=== PATIENT | male | born 1975 | race Caucasian/White ===

== ENCOUNTER → 2022-02-03 | Outpatient (REF) | payer SELFPAY ==
[2022-02-03 15:27] LABS: Absolute Lymphocyte Count 1.17 X10^3/uL (0.83-4.51); Absolute Neutrophil Count 3.3 X10^3/uL (2.0-7.7); Basophil# 0.03 X10^3/uL; Basophil% 0.6 % (0-1); Eosinophil# 0.09 X10^3/uL; Eosinophils% 1.8 % (0-5); Hematocrit 44.7 % (40-54); Hemoglobin 15.5 g/dL (13.0-16.5); Lymphocyte # 1.17 X10^3/ul (0.83-4.51); Lymphocyte % 23.4 % (19-41); Mean Corp Hgb Conc 34.7 g/dL (32-36); Mean Corpuscular Hgb 31.3 pg (27.0-32.0); Mean Corpuscular Volume 90.1 fL (80-94); Mean Platelet Vol. 9.7 fl (6.2-12.0); Monocyte# 0.36 X10^3/uL; Monocyte% 7.2 % (0-10); NRBC Flagged by Analyzer 0 % (0-5); Neutrophil # 3.34 X10^3/uL (2.7-7.7); Neutrophil % 66.8 % (47-70); Platelet Count 250 K/mm3 (150-450); RBC Distribution Width CV 11.9 % (11.6-14.6); RBC Distribution Width SD 39.3 fl (35.1-43.9); Red Blood Count 4.96 M/mm3 (4.6-6.2)
[2022-02-03 15:43] LABS: Erythrocyte Sedimentation Rate 11 mm/hr (0-20)
[2022-02-03 16:29] LABS: Hemoglobin A1c 5.3 % (3.8-5.6)
[2022-02-03 16:31] LABS: ALB/GLOB Ratio 1.2 RATIO (0.9-2.4); AST(SGOT) 13 U/L (15-37); Alanine Aminotransfer ALT/SGPT 23 U/L (16-61); Albumin, Serum 4.1 g/dL (3.2-5.0); Alkaline Phosphatase 58 U/L (45-117); Anion Gap 5 (5-15); BUN 19 mg/dL (7-18); BUN/Creat Ratio 16.8 RATIO (10-20); CRP < 2.90 mg/L (0.0-3.0); Calcium,Total 9.2 mg/dL (8.5-10.1); Chloride 106 mmol/L (98-107); Cholesterol 217 mg/dL (200); Creatinine, Serum 1.13 mg/dL (0.70-1.30); EST Glomerular Filtration Rate 74 mL/min (>60); Est Glom Filt Rate - Afr Amer 90 mL/min (>60); Ferritin 88 ng/mL (26-388); Free T3 2.6 pg/mL (2.18-3.98); Globulin 3.3 g/dL (2.2-4.2); Glucose 95 mg/dL (74-106); High Density Lipoprotein 65 mg/dL; Iron 99 ug/dL (65-175); PSA,Total - Annual Screen 4.19 ng/mL (0.00-4.00); Potassium 4.4 mmol/L (3.5-5.1); Protein, Total 7.4 g/dL (6.4-8.2); Sodium Level 142 mmol/L (136-145); Triglycerides 106 mg/dL; Very Low Density Lipoprotein 21 mg/dL (5-40)
[2022-02-04 07:04] LABS: Homocysteine 11.1 umol/L (3.2-10.7)
[2022-02-05 08:40] LABS: Vitamin B12 571 pg/mL (211-911); Vitamin D,25 Hydroxy 36.6 ng/mL
[2022-02-08 15:44] LABS: Thyroglobulin Antibody < 1.0 IU/mL (0.0-0.9); Thyroid Peroxidase AB < 8 IU/mL (0-34)
== END | disposition home or self-care (01) ==
LOC: LABSPEC 14:53
PROVIDERS: Visit Provider Nurse Practitioner Family
DX: R59.9 Enlarged lymph nodes, unspecified (principal)
CPT/HCPCS: 80053; 80061; 82306; 82607; 82627; 82728; 83036; 83090; 83540; 84153; 84403; 84439; 84443; 84481; 85025; 85652; 86140; 86376; 86800; 82626; G0103

== ENCOUNTER → 2022-02-13 | Outpatient (CLI) | payer SELFPAY ==
--- NOTE | 2022-02-13 18:21 | US_ITS ---
EXAM: US ABDOMEN LIMITED CLINICAL INDICATION: LUMP -LT CHEST TECHNIQUE: Real-time ultrasound of the soft tissues of the abdomen with image documentation. This report was created using Tk20 report generation technology. COMPARISON: No FINDINGS: See Impression US/Ext Non Vasc Limited/Soft Tiss IMPRESSION: Hyperechoic elongated mass measuring 2.8 x 4.5 x 0.8 cm compatible with lipoma. Electronically Signed: García Trujillo MD at 21:12 EST ,
== END | disposition home or self-care (01) ==
PROVIDERS: PCP Internal Medicine; Referring Provider Nurse Practitioner Family; Visit Provider Nurse Practitioner Family
DX: R22.2 Localized swelling, mass and lump, trunk (principal)
CPT/HCPCS: 76882

== ENCOUNTER 2022-05-06 10:19 | Emergency (ER) | payer SELFPAY ==
[2022-05-06 10:21] VITALS: BP 153/86; PULSE 72; RESP 14; TEMP 36.2; O2SAT 100; BMI 25.1
--- NOTE | 2022-05-06 10:26 | EDS_ITS ---
HPI History of Present Illness Chief Complaint: Other, Pain/Inj Informant: patient Onset/Context/Timing Onset: Month(s) (2) Context: Gradual Onset Timing: Waxes and wanes Quality: Aching Location: Left neck and upper chest Worsened by: Activity Relieved by: Sleeping Narrative Narrative: Patient presents with neck pain and swelling that has been getting progressively worse over the past 2 months. Patient states that today he felt like the swelling was going from his left side of his neck to his chest. Patient states it is over his upper chest. Patient states the pain is better when he first wakes up in the morning. Patient states it gets worse throughout the day as he is more active. Patient denies any fevers or chills. Patient denies any difficulty breathing or difficulty swallowing. Patient admits to an occasional cough but denies any sputum production. Patient denies any shortness of breath. Patient admits to some pain in his low back as well as his neck. Patient also states that he had some redness in his semen this morning. Patient thought it was blood. 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 Prior similar symptoms: No PFSH PFSH Medical History (Updated 05/06/22 @ 12:[address] Ruben Franklin, DO) Anxiety Depressed Headache Home Medications vitamin B complex 1 tab PO DAILY 01/03/21 [History Last Taken Unknown] ALLICIN 2 tab PO/SL DAILY 05/06/22 [History Last Taken Unknown] Endozin 1 tab PO/SL DAILY 05/06/22 [History Last Taken Unknown] Liquid D3 With Vitamin K2 5 drp PO/SL DAILY 05/06/22 [History Last Taken Unknown] P-5-PLUS 2 tab PO/SL DAILY 05/06/22 [History Last Taken Unknown] Seed Synbiotic 2 tab PO/SL DAILY 05/06/22 [History Last Taken Unknown] Ulticardio 24 2 tab PO/SL DAILY 05/06/22 [History Last Taken Unknown] atovaquone 750 mg/5 mL oral suspension 750 mg PO BID 05/06/22 [History Last Taken Unknown] azithromycin 500 mg tablet 500 mg PO DAILY 05/06/22 [History Last Taken Unknown] multivitamin 1 tab PO DAILY 05/06/22 [History Last Taken Unknown] tafenoquine 150 mg tablet (Krintafel) 150 mg PO FR 05/06/22 [History Last Taken 05/04/22] Allergy/AdvReac Type Severity Reaction Status Date / Time No Known Allergies Allergy Verified 05/06/22 10:21 Family History (Updated 01/03/21 @ 15:19 by Iona Ferris) Other Heart disease Hypertension Thyroid disorder Surgical History (Updated 05/06/22 @ 10:[address] Ruben Franklin DO) Hx of inguinal herniorrhaphy Social History Smoking Status: Never smoker alcohol intake: never substance use type: does not use ROS ROS ED Constitutional Constitutional ED: Denies chills or fever(s) Eyes Eyes: Denies blurry vision or change in vision ENT ENT ED: Denies rhinorrhea or sore throat Cardiovascular Cardiovascular: Denies chest pain or palpitations Respiratory/Chest Respiratory/Chest: Reports cough; Denies dyspnea Gastrointestinal Gastrointestinal: Denies nausea or vomiting Genitourinary Genitourinary ED: Denies dysuria or hematuria Musculoskeletal Musculoskeletal: Reports back pain and neck pain Integumentary Denies abscess or rash Neurologic Neurologic: Denies headache(s) or weakness Allergic/Immunologic Allergic/Immunologic ED: Denies mouth swelling or urticaria EXAM Physical Exam Const Vital Signs: 05/06/22 10:21 05/06/22 10:32 Temperature 97.1 F L Temperature Source Temporal Pulse Rate 72 Respiratory Rate 14 Respiratory Effort Normal Non-Labored Respiratory Pattern Normal Blood Pressure 153/86 H Blood Pressure Mean 108 Pulse Ox 100 Oxygen Delivery Method Room Air Positive well nourished and well developed General Appearance ED: well developed and NAD HEENT Reports moist mucous membranes Neck supple and no JVD Neck Narrative: There is mild tenderness over the left sternocleidomastoid area. There is mild edema but there is no ecchymosis. There is no bony crepitance or step-off. There is good range of motion. There is questionable lymphadenopathy in this ar ea. Resp normal respiratory effort and clear to auscultation bilaterally Cardio regular rate, regular rhythm and no murmurs GI normal to inspection, nondistended, normoactive bowel sounds and non-tender Palpation: soft Extremity normal to inspection General Extremety ED: Negative for edema or tenderness General Extremity: Negative for edema Neuro oriented x3, CN's II-XII intact bilaterally and no sensory deficits noted Sensorium / Orientation: alert Motor Exam: strength 5/5 throughout Psych mental status grossly normal Skin no rashes or lesions noted MDM MDM MDM Narrative Medical decision making narrative: Differential diagnosis include lymphoma, lymphadenopathy, soft tissue mass, abscess, branchial cleft cyst, coagulopathy, genitourinary infection, pharyngitis, viral illness, or other cancer. CBC will be obtained to assess for leukocytosis, anemia, and thrombocytopenia. PT was INR and PTT will be obtained to assess for coagulopathy. Comprehensive metabolic profile will be obtained to assess for electrolyte abnormality, renal function, and hepatic function. Urinalysis will be obtained to assess for urinary infection. Chest x-ray will be obtained to assess for pneumonia, mass, or other cardiopulmonary abnormality. CT scan of the soft tissue neck will be obtained to assess for mass, swelling, and lymphadenopathy. Lab Data Attestation: I reviewed the patient's lab results. Lab results narrative: CBC was reviewed and was within normal limits. PT was INR and PTT was reviewed and was within normal limits. Urinalysis was reviewed and was within normal limits. Comprehensive metabolic profile was reviewed and was within normal limits. Labs: Laboratory Results - last 24 hr 05/06/22 05/06/22 05/06/22 10:55 10:58 10:58 WBC 4.9 RBC 4.82 Hgb 14.9 Hct 43.9 MCV 91.1 MCH 30.9 MCHC 33.9 RDW Std Deviation 40.4 RDW Coeff of Magdaleno 12.0 Plt Count 248 MPV 8.9 Immature Gran % (Auto) 0.000 Neut % (Auto) 61.6 Lymph % (Auto) 24.9 [place] % (Auto) 10.5 H Eos % (Auto) 2.0 Baso % (Auto) 1.0 Absolute Neuts (auto) 3.0 Absolute Lymphs (auto) 1.23 Nucleated RBC % 0 PT 14.1 INR 1.1 APTT 29.0 Sodium Potassium Chloride Carbon Dioxide Anion Gap BUN Creatinine Estim Creat Clear Calc Est GFR (MDRD) Af Amer Est GFR (MDRD) Non-Af BUN/Creatinine Ratio Glucose Calcium Total Bilirubin AST ALT Alkaline Phosphatase Total Protein Albumin Globulin Albumin/Globulin Ratio Urine Color Yellow Urine Clarity Clear Urine pH 6.5 Ur Specific [place] 1.020 Urine Protein 15 H Urine Glucose (UA) Normal Urine Ketones Negative Urine Occult Blood 10 H Urine Nitrite Negative Urine Bilirubin Negative Urine Urobilinogen Normal Ur Leukocyte Esterase Negative Urine RBC 0 SEEN Urine WBC 0 SEEN Ur Squamous Epith Cells 0 SEEN Urine Bacteria 0 SEEN Urine Mucus 1+ 05/06/22 10:58 WBC RBC Hgb Hct MCV MCH MCHC RDW Std Deviation RDW Coeff of Magdaleno Plt Count MPV Immature Gran % (Auto) Neut % (Auto) Lymph % (Auto) [place] % (Auto) Eos % (Auto) Baso % (Auto) Absolute Neuts (auto) Absolute Lymphs (auto) Nucleated RBC % PT INR APTT Sodium 144 Potassium 4.2 Chloride 109 H Carbon Dioxide 29.0 Anion Gap 6 BUN 20 H Creatinine 1.25 Estim Creat Clear Calc 81.91 Est GFR (MDRD) Af Amer 80 Est GFR (MDRD) Non-Af 66 BUN/Creatinine Ratio 16.0 Glucose 104 Calcium 8.9 Total Bilirubin 0.90 AST 21 ALT 35 Alkaline Phosphatase 47 Total Protein 7.6 Albumin 4.3 Globulin 3.3 Albumin/Globulin Ratio 1.3 Urine Color Urine Clarity Urine pH Ur Specific [place] Urine Protein Urine Glucose (UA) Urine Ketones Urine Occult Blood Urine Nitrite Urine Bilirubin Urine Urobilinogen Ur Leukocyte Esterase Urine RBC Urine WBC Ur Squamous Epith Cells Urine Bacteria Urine Mucus Radiography Diagnostic Testing: Clinical Impression(s) from Imaging Studies Soft Tissue Neck CT 05/06/22 10:41 IMPRESSION: Normal enhanced CT examination of the soft tissues of the neck. Electronically Signed: Aroldo Interiano MD at 11:45 EST Reading Location ID and State: [address] [place] [address] , Service support , Chest X-Ray 05/06/22 10:42 IMPRESSION: Normal chest radiographs. Electronically Signed: Aroldo Interiano MD at 11:43 EST , PA and lateral chest x-ray was obtained. There are 2 views. On my independent interpretation, lung lake are clear. There is normal cardiac silhouette. Bony thorax is normal. There is no acute process noted. Radiologist also interpreted the x-ray and agrees. CT scan of the soft tissue neck was obtained. On my independent review, there is no acute abnormality. Radiologist also interpreted the CT scan and did not see any evidence of abscess, lymphadenopathy, mass, or soft tissue swelling. There is no acute process noted. Treatment and Re-Evaluation Narrative: Patient was advised of his findings. Patient is feeling better on reevaluation. Patient was instructed to follow-up with his primary care physician in 5 to 7 days for further evaluation. Patient understood and was agreeable with the plan. All questions were answered. Discharge Plan Triage Chief Complaint: Other, Pain/Inj ED Provider: Ruben Franklin Dx/Rx/DC Orders Clinical Impression: Neck pain Instructions: ED Neck Pain Prescriptions: No Action vitamin B complex Tablet 1 tab PO DAILY ALLICIN 2 tab PO/SL DAILY multivitamin [Grapefruit-500] Tablet 1 tab PO DAILY atovaquone 750 mg/5 mL suspension 750 mg PO BID Label Comments: Start with 1/2 teaspoon once daily and gradually work up to a full dose of 1 teaspoon twice daily azithromycin 500 mg tablet 500 mg PO DAILY Label Comments: TAKE 1 TABLET BY MOUTH EVERY DAY Krintafel 150 mg tablet 150 mg PO FR Label Comments: TAKE 1 OR 2 TABLETS BY MOUTH ONCE WEEKLY with food Endozin 1 tab PO/SL DAILY Liquid D3 With Vitamin K2 5 drp PO/SL DAILY P-5-PLUS 2 tab PO/SL DAILY Seed Synbiotic 2 tab PO/SL DAILY Ulticardio 24 2 tab PO/SL DAILY Primary Care Provider: Frances Chow BRIDGES SUPERVISOR Referrals: Hilaria Zurita MD [Med Staff - Securities Teller] - 5-7 Days Disposition Disposition: Home, Self Care
--- NOTE | 2022-05-06 10:41 | CT_ITS ---
STUDY: CT SOFT TISSUE NECK WITH CONTRAST REASON FOR EXAM: Male, 46 years old. Neck pain RADIATION DOSAGE (If Supplied By Facility): CTDIvol = ( 16.69 ) mGy, DLP = ( 581.25 ) mGycm TECHNIQUE: The patient was scanned in a multi-detector CT scanner. High resolution transaxial imaging was performed following intravenous administration of IV 75mL Isovue-370. Sagittal and coronal images were reconstructed. Individualized dose optimization techniques were used for this CT. COMPARISON: None. FINDINGS: Normal bilateral parotid glands. Normal bilateral filenet architect spaces. Normal bilateral parapharyngeal spaces. Normal bilateral carotid spaces. Normal bilateral sublingual and submandibular glands and spaces. Normal visualized nasopharynx. Normal retropharyngeal space. Normal perivertebral space. Normal visualized bilateral faucial tonsils. The visualized tongue, tongue base and oropharynx are normal. The visualized cervical lymph nodes (levels I-) are within normal size limits, and maintain normal morphology. There is no demonstrated solid or cystic mass lesion. There is no abnormal contrast enhancement. Normal epiglottis, bilateral vallecula and hypopharynx. The pre-epiglottic and paraglottic adipose spaces are normal. Normal visualized bilateral piriform sinuses, aryepiglottic folds, vocal cords, and arytenoid-cricoid articulations. Normal subglottic trachea. Normal bilateral lobes of the thyroid gland. Normal visualized pulmonary apices. Normal visualized paranasal sinuses. Normal visualized cervical spine. CT/Soft Tissue Neck WITH Contrast IMPRESSION: Normal enhanced CT examination of the soft tissues of the neck. Electronically Signed: Aroldo Interiano MD at 11:45 EST ,
--- NOTE | 2022-05-06 10:42 | RAD_ITS ---
EXAM: XR CHEST, 2 VIEWS CLINICAL INDICATION: Cough TECHNIQUE: Frontal and lateral views of the chest. This report was created using Sistemic report generation technology. COMPARISON: None. FINDINGS: LUNGS AND PLEURAL SPACES: The lungs are clear. No pneumothorax. No effusion. HEART: Unremarkable. Cardiac silhouette not enlarged. MEDIASTINUM: Central airways and mediastinal contour are unremarkable. BONES/JOINTS: Unremarkable. SOFT TISSUES: Unremarkable. RAD/Chest PA and Lateral IMPRESSION: Normal chest radiographs. Electronically Signed: Aroldo Interiano MD at 11:43 EST ,
[2022-05-06 11:05] LABS: Bacteria 0 SEEN /hpf (None Seen); Red Blood Cells-Urine 0 SEEN /hpf (0-5); Squamous Epithelial Cells - UA 0 SEEN /hpf (0-5); White Blood Cells 0 SEEN /hpf (0-5)
[2022-05-06] MEDS: 0.9% Normal Saline 1,000 ML 1000 ML IV (11:06)
[2022-05-06 11:08] LABS: Absolute Lymphocyte Count 1.23 X10^3/uL (0.83-4.51); Basophil# 0.05 X10^3/uL; Hematocrit 43.9 % (40-54); Hemoglobin 14.9 g/dL (13.0-16.5); Lymphocyte # 1.23 X10^3/ul (0.83-4.51); Lymphocyte % 24.9 % (19-41); Mean Corp Hgb Conc 33.9 g/dL (32-36); Mean Corpuscular Hgb 30.9 pg (27.0-32.0); Mean Corpuscular Volume 91.1 fL (80-94); Mean Platelet Vol. 8.9 fl (6.2-12.0); Monocyte# 0.52 X10^3/uL; Monocyte% 10.5 % (0-10); NRBC Flagged by Analyzer 0 % (0-5); Neutrophil # 3.03 X10^3/uL (2.7-7.7); Neutrophil % 61.6 % (47-70); Platelet Count 248 K/mm3 (150-450); RBC Distribution Width SD 40.4 fl (35.1-43.9); Red Blood Count 4.82 M/mm3 (4.6-6.2); White Blood Count 4.9 K/mm3 (4.4-11.0)
[2022-05-06 11:08] LABS: Color, Urine Yellow (Yellow); Glucose, Dipstick Normal (Normal); Ketone-Dipstick Negative (Negative); Leukocyte Esterase-Dipstick Negative /ul (Negative); Nitrite-Dipstick Negative (Negative); Occult Blood-Urine 10 /ul (Negative); Protein-Dipstick 15 mg/dl (Negative); Urine Bilirubin Dipstick Negative (Negative); Urine Clarity Clear (Clear); Urine Urobilinogen Normal (Normal); Urine pH 6.5 (5.0 - 8.0)
[2022-05-06 11:17] LABS: Mucous, Urine 1+ /hpf (<or=2+)
[2022-05-06 11:18] LABS: International Normalized Ratio 1.1; Prothrombin Time (Protime)PT. 14.1 SECONDS (11.7-14.9)
[2022-05-06 11:25] LABS: ALB/GLOB Ratio 1.3 RATIO (0.9-2.4); AST(SGOT) 21 U/L (15-37); Alanine Aminotransfer ALT/SGPT 35 U/L (16-61); Albumin, Serum 4.3 g/dL (3.2-5.0); Alkaline Phosphatase 47 U/L (45-117); Anion Gap 6 (5-15); BUN 20 mg/dL (7-18); Calcium,Total 8.9 mg/dL (8.5-10.1); Chloride 109 mmol/L (98-107); Creatinine, Serum 1.25 mg/dL (0.70-1.30); EST Glomerular Filtration Rate 66 mL/min (>60); Est Glom Filt Rate - Afr Amer 80 mL/min (>60); Estimated Creatinine Clearance 81.91 ml/min; Globulin 3.3 g/dL (2.2-4.2); Glucose 104 mg/dL (74-106); Potassium 4.2 mmol/L (3.5-5.1); Protein, Total 7.6 g/dL (6.4-8.2); Sodium Level 144 mmol/L (136-145)
[2022-05-06 12:16] VITALS: PULSE 76; RESP 16; O2SAT 100
== END 2022-05-06 12:18 | disposition home or self-care (01) ==
PROVIDERS: Emergency Provider Emergency Medicine; PCP Nurse Practitioner Family; Visit Provider Emergency Medicine
DX: M54.2 Cervicalgia (principal); R07.89 Other chest pain; M54.50 Low back pain, unspecified; A69.20 Lyme disease, unspecified; Z79.899 Other long term (current) drug therapy
CPT/HCPCS: 70491; 71046; 80053; 81001; 85025; 85610; 85730; 96360; 99283; J7030; Q9967; A4216

== ENCOUNTER → 2022-05-28 | Outpatient (CLI) | payer SELFPAY ==
--- NOTE | 2022-05-28 06:44 | MRI_ITS ---
EXAM: MR HEAD WITHOUT AND WITH INTRAVENOUS CONTRAST CLINICAL INDICATION: HEADACHES TECHNIQUE: Multiplanar and multisequence MR images of the brain were obtained without and with intravenous contrast. This report was created using Autosprite report generation technology. CONTRAST: 17 mL of IV Clariscan. COMPARISON: None. FINDINGS: BRAIN AND EXTRA-AXIAL SPACES: Following IV contrast administration, there are no abnormal enhancing lesions intra-axially and extra-axially. No intra- or extra-axial hemorrhage. No intracranial mass or mass effect. Posterior fossa structures are unremarkable. No hydrocephalus. No diffusion restriction to suspect acute or subacute ischemic infarct. No focal signal abnormalities throughout the brain parenchyma in all pulse sequences. Normal ventricles and cisterns. SELLA: Unremarkable. Normal sella turcica, pituitary gland, infundibular stalk, optic chiasm and hypothalamus. AUDITORY SYSTEM: Unremarkable. The internal auditory canals are patent. BONES/JOINTS: Unremarkable. No discrete lytic or blastic abnormalities. SINUSES: Unremarkable as visualized. Clear. MASTOID AIR CELLS: Unremarkable as visualized. Clear. ORBITS: Unremarkable as visualized. Both globes, extraocular muscles, optic nerves and retrobulbar fat appear unremarkable. VASCULATURE: Unremarkable as visualized. Normal flow voids in the major intracranial circulation. MRI/Brain W/WO Contrast IMPRESSION: Negative MRI brain with and without contrast. Electronically Signed: Aroldo Interiano MD at 9:08 EST ,
--- NOTE | 2022-05-28 06:44 | MRI_ITS ---
STUDY: MRI SOFT TISSUE NECK WITH AND WITHOUT CONTRAST REASON FOR EXAM: Male, 46 years old. Left soft tissue neck swelling. TECHNIQUE: Standarized fat and water weighted pulse sequences were obtained in all 3 orthogonal plane pre and post administration of 17 mL of IV Clariscan.. COMPARISON: CT neck with contrast 05/06/2022. FINDINGS: Normal bilateral parotid glands. Normal bilateral news intern spaces. Normal bilateral parapharyngeal spaces. Normal bilateral carotid spaces. Normal bilateral sublingual and submandibular glands and spaces. Normal visualized nasopharynx. Normal retropharyngeal space. Normal perivertebral space. Normal visualized bilateral faucial tonsils. The visualized tongue, tongue base and oropharynx are normal. The visualized cervical lymph nodes (levels I-) are within normal size limits, and maintain normal morphology. There is no demonstrated solid or cystic mass lesion. There is no abnormal contrast enhancement. Normal epiglottis, bilateral vallecula and hypopharynx. The pre-epiglottic and paraglottic adipose spaces are normal. Normal visualized bilateral piriform sinuses, aryepiglottic folds, vocal cords, and arytenoid-cricoid articulations. Normal subglottic trachea. Normal bilateral lobes of the thyroid gland. Normal visualized pulmonary apices. Normal visualized paranasal sinuses. Normal visualized cervical spine. MRI/Orbit Face Neck W/WO Contrast IMPRESSION: Normal unenhanced and enhanced MRI examination of the soft tissues of the neck and unchanged since CT neck with contrast 7 05/06/2022. COMMENT: Lipoma of the neck is sometimes invisible on supine CT and supine MRI neck positioning. There is no visible mass in the suprahyoid neck and infrahyoid neck. Please correlate with physical exam/visual inspection of the neck when patient is upright. Electronically Signed: Aroldo Interiano MD at 9:12 [facility] ,
== END | disposition home or self-care (01) ==
LOC: MRI 06:36
PROVIDERS: PCP Nurse Practitioner Family; Referring Provider Nurse Practitioner Family; Visit Provider Nurse Practitioner Family
DX: G44.52 New daily persistent headache (NDPH) (principal); R22.1 Localized swelling, mass and lump, neck
CPT/HCPCS: 70543; 70553; A9575

== ENCOUNTER 2023-01-01 06:59 | Day surgery (SDC) | payer SELFPAY ==
[2023-01-01 07:35] VITALS: BP 141/93; PULSE 82; RESP 16; TEMP 36.5; O2SAT 95; BMI 23.6
[2023-01-01] MEDS: Lactated Ringers 1,000 ML 15 ML IV (07:35)
--- NOTE | 2023-01-01 07:47 | PCM.HP.BLA ---
History and Physical Date of Admission: 01/01/23 Intake Vital Signs 05/06/2309:21 12/27/2307:15 Height 6 ft 6 ft 1 in Weight: 182 lb BMI 24.0 BP 176/102 H Blood Pressure Location Lt brachial Position Sitting Respiration 18 Pulse 74 Pulse Oximetry (%) 92 Oxygen Delivery Method room air Intake Visit Reasons: HEMORRHOIDS/ABD PAIN Chief Complaint: hemorrhoids and abd pain Cloth Dyeing Range Tender Required: No Is patient in pain?: No Allergies No Known Allergies Allergy (Verified 12/26/22 08:16) Medications ALLICIN 2 tab PO/SL DAILY 05/06/22 [History Confirmed 05/06/22] Endozin 1 tab PO/SL DAILY 05/06/22 [History Confirmed 05/06/22] atovaquone 750 mg/5 mL oral suspension 750 mg PO BID 05/06/22 [History Confirmed 05/06/22] primaquine 26.3 mg tablet PO 12/26/22 [History Confirmed 12/26/22] PFSH Medical History (Updated 12/26/22 @ 08:[address] Eris Peña MD) Anxiety Depressed Fatigue Headache Hemorrhoids Stomach pain Surgical History Hx of inguinal herniorrhaphy Family History (Updated 12/26/22 @ 08:14 by Swapna Ventura) Mother Thyroid disorderFather HypertensionGrandfather Heart diseaseGrandmother CVA (cerebral vascular accident) Social History Smoking Status: Never smoker alcohol intake: never substance use type: does not use HPI HPI HPI: Patient is a 47-year-old male here with abdominal pain. The patient says that he has diffuse abdominal pain that comes and goes. It does not have anything to do with his diet. He says that no matter what he eats it comes and goes. Due to your time he definitely feels it is when he lays on his stomach. He denies any blood in his stool. He has never had a colonoscopy. He was sent here for a colonoscopy as he is concerned for colon cancer. ROS General General: Yes fatigue; No weight change, appetite, colon cancer, breast cancer or weakness HEENT HEENT: Yes swollen glands; No difficulty swallowing, eye injury, eye surgery or hoarseness Endo Endocrine: No thyroid disease, diabetes mellitus, thyroid cancer, Hair loss, heat intolerance or cold intolerance Skin Skin: No rash or changing moles Breast Breast: No left breast lump, right breast lump, nipple discharge, breast pain, abnormal mammogram, abnormal US or breast enlargement Musc Musculoskeletal: Yes back problems; No arthritis, rheumatoid arthritis, gout or joint pain Cardio Cardiovascular: No murmur, pacemaker, heart disease, atrial fibrillation, high blood pressure, heart attack, heart stent, palpitations, shortness of breat with exertion or chest pain Psych Psychiatric: Yes anxiety; No depression or hearing voices Resp Respiratory: Yes shortness of breath, No sleep apnea, No cough, No COPD, No asthma, No emphysema and No wheezing Gastro Gastrointestinal: Yes abdominal pain, No nausea or vomiting, No diarrhea, No constipation, No blood in stool, No acid reflux, Yes hemorrhoids, No ulcers, No gallbladder problem and No black,tarry stools David Hematologic: No blood thinners, No blood disorders, No bleeding, No anemia and No blood clots Neuro Neurologic: No system reviewed and no additional complaints, except as documented, No as per HPI, No abnormal gait, No abnormal hearing, No abnormal movements, No abnormal speech, No behavioral changes, No burning sensations, No confusion, No convulsions, No disequilibrium, No dizziness, No localized weakness, No frequent falls, No headache(s), No lack of coordination, No loss of vision, No memory loss, Yes numbness, No other visual disturbances, No radicular pain, No restless legs, No sensory deficit, No syncope, Yes tingling, No tremor(s), No weakness and No other Exam Const General: cooperative Orientation: alert and oriented x3 HENMT Head: normal to inspection Neck Neck: normal visual inspection and full ROM Chest Chest palpation & inspection: normal inspection of the chest Resp Effort & Inspection: normal respiratory effort Auscultation: clear to auscultation bilaterally Cardio Rate: regular rate Rhythm: regular rhythm GI Inspection: non-distended Palpation: soft and nontender Skin General: no rashes or lesions noted Neuro General: patient alert and patient oriented x3 Extrem General: full ROM Psych Appearance: grossly normal Mental Status: mental status grossly normal Assessment and Plan Assessment and Plan (1) Hemorrhoids: Status: Acute Qualifiers: Hemorrhoid type: unspecified Qualified Code(s): K64.9 - Unspecified hemorrhoids (2) Abdominal pain: Status: Acute Qualifiers: Abdominal location: generalized Qualified Code(s): R10.84 - Generalized abdominal pain Orders: Orders Colonoscopy Today Plan Patient is having on and off generalized abdominal pain and has never had a colonoscopy. He is here because he would like a colonoscopy to ensure that he does not have a colon cancer. The patient does have a history of hemorrhoids but I was unable to find any hemorrhoids on exam. I will plan for colonoscopy. I explained endoscopy in detail to the patient. I explained the risks including but not limited to stroke or heart attack with anesthesia, perforation of the GI tract, bleeding, infection. I explained that any of these could necessitate further emergency surgery. The patient understands and all questions were answered sufficiently. The patient wishes to proceed with procedure. Eris Peña MD Pager: [facility] [address] [place] [address], [address] [place] [address] Office: I have examined the patient and the H&P has been reviewed. There are no clinical changes since date of exam.
[2023-01-01 08:17] VITALS: BP 127/82; BP 141/93; PULSE 70; RESP 16; TEMP 36.3; O2SAT 95
[2023-01-01 08:20] VITALS: BP 125/81; BP 141/93; PULSE 68; RESP 16; O2SAT 95
--- NOTE | 2023-01-01 08:23 | OP.CCLET_ITS ---
01/01/2023 Brina Starks Re : Colonoscopy procedure for Janusz Hernandez Dear Np. Chow This procedure was performed on Sunday, January 01, 2023. My impressions and recommendations are as follows: Impressions : - The entire examined colon is normal on direct and retroflexion views. - No specimens collected. Recommendations : - Discharge patient to home. - Resume previous diet. - Continue present medications. - Repeat colonoscopy in 10 years for screening purposes. My findings are described in the full procedure note, which is enclosed. If I can be of further assistance, please feel free to contact me at Doctor phone number(s): , Work: . Sincerely, Eris Peña MD 01/01/2023 8:23:24 AM This report has been signed electronically.
--- NOTE | 2023-01-01 08:23 | OP.COLON_ITS ---
Patient Name: Janusz Hernandez Procedure Date: 01/01/2023 7:50 AM Date of : 1975 Age: 47 Procedure: Colonoscopy Indications: Generalized abdominal pain Providers: Eris Peña MD Referring MD: Brina Starks Medicines: Monitored Anesthesia Care Patient Profile: This is a 47 year old male. Refer to note in patient chart for documentation of history and physical. Last Colonoscopy: none. The patient's first colonoscopy is today. Complications: No immediate complications. Procedure: Pre-Anesthesia Assessment: - Prior to the procedure, a History and Physical was performed, and patient medications and allergies were reviewed. The patient's tolerance of previous anesthesia was also reviewed. The risks and benefits of the procedure and the sedation options and risks were discussed with the patient. All questions were answered, and informed consent was obtained. Prior Anticoagulants: The patient has taken no anticoagulant or antiplatelet agents. After reviewing the risks and benefits, the patient was deemed in satisfactory condition to undergo the procedure. After I obtained informed consent, the scope was passed under direct vision. Throughout the procedure, the patient's blood pressure, pulse, and oxygen saturations were monitored continuously. The colonoscope was introduced through the anus and advanced to the cecum, identified by appendiceal orifice and ileocecal valve. The colonoscopy was performed without difficulty. The patient tolerated the procedure well. The quality of the bowel preparation was good. The ileocecal valve, appendiceal orifice, and rectum were photographed. Scope In: 8:03:26 AM Scope Withdrawal Time 0 hours 4 minutes 17 seconds Scope Out: 8:10:15 AM Total Procedure Duration Time 0 hours 6 minutes 49 seconds Findings: The entire examined colon appeared normal on direct and retroflexion views. Impression: - The entire examined colon is normal on direct and retroflexion views. - No specimens collected. Recommendation: - Discharge patient to home. - Resume previous diet. - Continue present medications. - Repeat colonoscopy in 10 years for screening purposes. Procedure Code(s): --- Professional --- 05107, Colonoscopy, flexible; diagnostic, including collection of specimen(s) by brushing or washing, when performed (separate procedure) Diagnosis Code(s): --- Professional --- R10.84, Generalized abdominal pain CPT copyright 2021 [employer]. All rights reserved. The codes documented in this report are preliminary and upon associate professor of church music review may be revised to meet current compliance requirements. Eris Peña MD 01/01/2023 8:23:24 AM This report has been signed electronically. Number of Addenda: 0 Note Initiated On: 01/01/2023 7:50 AM
[2023-01-01 08:25] VITALS: BP 127/85; BP 141/93; PULSE 65; RESP 16; O2SAT 94
[2023-01-01 08:30] VITALS: BP 121/83; BP 141/93; PULSE 68; RESP 16; TEMP 36.4; O2SAT 95
[2023-01-01 08:40] VITALS: BP 141/93
== END 2023-01-01 08:59 | disposition home or self-care (01) ==
LOC: EN 07:03 → AC 07:03
PROVIDERS: PCP Nurse Practitioner Family; Referring Provider Nurse Practitioner Family; Visit Provider Surgery
PROC: 0DJD8ZZ Inspection of Lower Intestinal Tract, Via Natural or Artificial Opening Endoscopic (ICD-10-PCS; CPT 45378; principal; 2023-01-01 07:55)
DX: R10.84 Generalized abdominal pain (principal); K64.9 Unspecified hemorrhoids
CPT/HCPCS: 45378; J7120

== ENCOUNTER → 2023-06-06 | Outpatient (CLI) | payer SELFPAY ==
--- NOTE | 2023-06-06 07:58 | RDU_ITS ---
Reason For Study: Early Satiety / Pain Aorta Proximal abdominal aorta 2.17 x 2.12 cm . Proximal abdominal aorta LONG - 2.14 cm Mid AO - 1.87cm x 1.72cm Mid AO LONG - 1.94cm Distal AO - 1.97cm x 1.96cm Distal AO LONG - 1.99cm. Proximal abdominal aorta peak systolic velocity is 92.6 cm/sec . Distal abdominal aorta peak systolic velocity is 59.7 cm/sec CELIAC A GILBERTO PSV - 308.5 cm/s CELIAC A GILBERTO PSV / INSP - 298.5 cm/s CELIAC A GILBERTO PSV / EXP - 290.0 cm/s HEPATIC A GILBERTO PSV - 282.9cm/s SPLENIC A GILBERTO PSV - 307.0cm/s SMA GILBERTO PSV - 247.0 cm/s SMA PROX PSV - 264.6cm/s SMA MID PSV - 182.6 cm/s SMA DIST PSV - 221.2 cm/s GABE GILBERTO PSV - 168.2 cm/s. Procedures Mesenteric Artery Duplex with B-Mode, Color Doppler and Pulsed Wave Doppler. 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 Superior mesenteric artery patent with normal velocities and no evidence of osvaldo nosis Inferior mesenteric artery patent with normal velocities and no evidence of osvaldo nosis Ordering Physician: Frances Chow Referring Physician: Frances Chow Performed By: Dennis Willis RVT
--- NOTE | 2023-06-06 07:59 | US_ITS ---
STUDY: SCROTUM ULTRASOUND REASON FOR EXAM: Male, 47 years old. PAIN LUMP LEFT TESTICLE TECHNIQUE: Ultrasound evaluation of the scrotum was performed with color Doppler and static aaron-scale imaging. COMPARISON: None. FINDINGS: RIGHT TESTICLE INTRATESTICULAR: There is a normal size of the right testicle. The right testicle measures 4.8 cm x 3 cm x 2.5 cm. There is a homogenous echotexture. There is normal arterial and normal venous vascularity. There is no demonstrated right testicular mass or cyst. EXTRATESTICULAR: The epididymis is normal in size. The epididymis head measures 1 cm x 1.2 cm x 1 cm. There is normal vascularity of the epididymis. There is no demonstrated epididymal cystic structure. There is no demonstrated hydrocele. There is no demonstrated varicocele. There is no demonstrated extratesticular mass or cyst. LEFT TESTICLE INTRATESTICULAR: There is a normal size of the left testicle. The left testicle measures 4.6 cm x 2.9 cm x 2.1 cm. There is a homogenous echotexture. There is normal arterial and normal venous vascularity. There is no demonstrated left testicular mass or cyst. EXTRATESTICULAR: The epididymis is normal in size. The epididymis head measures 0.8 cm x 1.3 cm x 0.8 cm. There is normal vascularity of the epididymis. There is a well-defined cystic structure within the epididymis, without internal echoes, consistent with an epididymal cyst. This cyst measures 5 mm x 4 mm x 3 mm. There is no demonstrated hydrocele. There are prominent extratesticular veins consistent with a varicocele. There is no demonstrated extratesticular mass or cyst. US/Testicular with Arterial Flow IMPRESSION: Small left epididymal cyst and varicocele. Electronically Signed: Boni Carpenter MD at 15:33 EST ,
--- NOTE | 2023-06-06 07:59 | US_ITS ---
STUDY: ABDOMINAL ULTRASOUND REASON FOR EXAM: Male, 47 years old. LOWER MID ABDOMINAL PAIN TECHNIQUE: Transabdominal ultrasound was performed with real-time and static aaron scale imaging. TECHNICAL QUALITY: Adequate. COMPARISON: None. FINDINGS: Liver: The liver measures 14.8 cm. There is normal echogenicity of the liver. The bile ducts are within normal limits. There is hepatic color flow. The direction of portal flow is hepatopetal. There is no demonstrated mass lesion. Gallbladder: Normal distended gallbladder. The gallbladder wall measures 1.2 mm. There is a negative sonographic Smith''s sign. There is no pericholecystic fluid. There are no gallstones. Common Bile Duct (C.B.D.): The common bile duct measures 5.1 mm. Pancreas: Normal size of the head, body and tail of the pancreas. There is normal echogenicity of the pancreas. There is no demonstrated pancreatic mass or cyst. Spleen: Normal size of the spleen. The spleen measures 9.7 cm x 5.3 cm x 3.7 cm. Right Kidney: Normal size of the right kidney. The right kidney measures 11.6 cm x 5.6 cm x 4.8 cm. Normal renal cortex. The right cortex measures 1.2 cm. There is no demonstrated renal mass or cyst. There is no right hydronephrosis. Left Kidney: Normal size of the left kidney. The left kidney measures 12.3 cm x 4.9 cm x 5.7 cm. Normal renal cortex. The left cortex measures 1.8 cm. There is no demonstrated renal mass or cyst. There is no left hydronephrosis. Aorta: Unremarkable. I.V.C.: The IVC is patent. There is no ascites. US/Abdomen Complete IMPRESSION: Normal abdominal ultrasound examination. Electronically Signed: Boni Carpenter MD at 15:27 EST ,
== END | disposition home or self-care (01) ==
PROVIDERS: PCP Nurse Practitioner Family; Referring Provider Nurse Practitioner Family; Visit Provider Nurse Practitioner Family
DX: R10.32 Left lower quadrant pain (principal); R68.81 Early satiety; R39.14 Feeling of incomplete bladder emptying; M54.59 Other low back pain; R22.30 Localized swelling, mass and lump, unspecified upper limb
CPT/HCPCS: 76700; 76870; 93975; 93976

== ENCOUNTER → 2023-06-19 | Outpatient (CLI) | payer SELFPAY ==
--- NOTE | 2023-06-19 12:49 | CT_ITS ---
STUDY: CTA ABDOMEN AND PELVIS WITH CONTRAST REASON FOR EXAM: Male, 47 years old. CELIAC ARTERY STENOSIS RADIATION DOSAGE (If Supplied By Facility): CTDIvol = ( 23.8 ) mGy, DLP = ( 646.16 ) mGycm TECHNIQUE: Transaxial images were obtained from the dome of the diaphragm to the symphysis pubis without oral contrast. IV 100mL Isovue-[id number] was administered. Sagittal and coronal images were reconstructed. 3-D images were reconstructed. Individualized dose optimization techniques were used for this CT. COMPARISON: None. FINDINGS: The visualized lung bases are unremarkable. The visualized portions of the heart are within normal limits. Normal liver. Normal gallbladder and extrahepatic biliary system. Normal spleen. Normal pancreas. Normal bilateral adrenal glands. Normal right kidney. Normal left kidney. Normal visualized stomach. Normal small intestine. Normal colon. The appendix is visualized and appears normal. Normal abdominal aorta. The celiac artery is unremarkable. Normal inferior vena cava. Normal retroperitoneum. Normal urinary bladder. Normal abdominal wall. Normal osseous structures. CT/CTA Abd/Pelvis W/WO Contrast IMPRESSION: Normal enhanced CT of the abdomen and pelvis. Electronically Signed: Boni Carpenter MD at 14:56 EDT ,
== END | disposition home or self-care (01) ==
LOC: CT 12:47
PROVIDERS: PCP Nurse Practitioner Family; Referring Provider Nurse Practitioner Family; Visit Provider Nurse Practitioner Family
DX: I77.4 Celiac artery compression syndrome (principal)
CPT/HCPCS: 74174; Q9967

== ENCOUNTER → 2023-07-29 | Outpatient (CLI) | payer SELFPAY ==
[2023-07-29 13:14] LABS: PSA,Total - Annual Screen 0.28 ng/mL (0.00-4.00)
== END | disposition home or self-care (01) ==
LOC: LAB 11:30
PROVIDERS: PCP Nurse Practitioner Family; Referring Provider Urology; Visit Provider Urology
DX: Z12.5 Encounter for screening for malignant neoplasm of prostate (principal)
CPT/HCPCS: 36415; 84153; G0103

== ENCOUNTER 2024-03-13 12:21 | Outpatient (CLI) | payer SELFPAY ==
[2024-03-13 13:04] LABS: Erythrocyte Sedimentation Rate 5 mm/hr (0-20)
[2024-03-13 13:06] LABS: Absolute Neutrophil Count 3.9 X10^3/uL (2.0-7.7); Basophil# 0.06 X10^3/uL; Eosinophil# 0.07 X10^3/uL; Eosinophils% 1.2 % (0-5); Hematocrit 46.5 % (40-54); Hemoglobin 15.6 g/dL (13.0-16.5); Lymphocyte % 23.9 % (19-41); Mean Corp Hgb Conc 33.5 g/dL (32-36); Mean Corpuscular Hgb 30.8 pg (27.0-32.0); Mean Corpuscular Volume 91.7 fL (80-94); Monocyte# 0.43 X10^3/uL; Monocyte% 7.3 % (0-10); NRBC Flagged by Analyzer 0 % (0-5); Neutrophil % 66.4 % (47-70); Platelet Count 287 K/mm3 (150-450); RBC Distribution Width CV 12.1 % (11.6-14.6); RBC Distribution Width SD 40.1 fl (35.1-43.9); Red Blood Count 5.07 M/mm3 (4.6-6.2); White Blood Count 5.9 K/mm3 (4.4-11.0)
[2024-03-13 13:25] LABS: ALB/GLOB Ratio 1.5 RATIO (0.9-2.4); AST(SGOT) 16 U/L (15-37); Alanine Aminotransfer ALT/SGPT 19 U/L (16-61); Albumin, Serum 4.3 g/dL (3.2-5.0); Alkaline Phosphatase 47 U/L (45-117); Anion Gap 6 (5-15); BUN 15 mg/dL (7-18); BUN/Creat Ratio 13.4 RATIO (10-20); CRP < 2.90 mg/L (0.0-3.0); Calcium,Total 8.8 mg/dL (8.5-10.1); Chloride 108 mmol/L (98-107); Cholesterol 203 mg/dL (200); Creatinine, Serum 1.12 mg/dL (0.70-1.30); EST Glomerular Filtration Rate 75 mL/min (>60); Est Glom Filt Rate - Afr Amer 90 mL/min (>60); Globulin 2.8 g/dL (2.2-4.2); Glucose 88 mg/dL (74-106); High Density Lipoprotein 64 mg/dL; Potassium 3.9 mmol/L (3.5-5.1); Protein, Total 7.1 g/dL (6.4-8.2); Sodium Level 140 mmol/L (136-145); Triglycerides 61 mg/dL; Very Low Density Lipoprotein 12 mg/dL (5-40)
[2024-03-13 14:05] LABS: Hemoglobin A1c 5.2 % (3.8-5.6)
[2024-03-19 10:08] LABS: PSA, Total 0.3 ng/mL (0.0-4.0); Testosterone, % Free 2.69 % (1.50-4.20); Testosterone, Free 10.76 ng/dL (5.00-21.00); Testosterone, Total 400 ng/dL (264-916)
== END 2024-03-13 23:59 | disposition home or self-care (01) ==
LOC: MEDOUTP 12:22
PROVIDERS: PCP Nurse Practitioner Family; Referring Provider Nurse Practitioner Family; Visit Provider Nurse Practitioner Family
DX: B60.09 Other babesiosis (principal); M62.89 Other specified disorders of muscle; R14.0 Abdominal distension (gaseous); R06.02 Shortness of breath; N50.89 Other specified disorders of the male genital organs; M54.59 Other low back pain; N41.0 Acute prostatitis; F41.9 Anxiety disorder, unspecified; G89.29 Other chronic pain; G47.00 Insomnia, unspecified; R07.89 Other chest pain
CPT/HCPCS: 80053; 80061; 82627; 83036; 84153; 84402; 84403; 85025; 85652; 86140; 86141; 82626